=== PATIENT | female | born 2000 | race Caucasian/White ===

== ENCOUNTER → 2023-09-23 | Outpatient (CLI) | payer OTHER, SELFPAY ==
[2023-09-23 12:27] LABS: AST(SGOT) 15 U/L (15-37); Alanine Aminotransfer ALT/SGPT 21 U/L (13-56); Cholesterol 156 mg/dL (200); Triglycerides 105 mg/dL
== END | disposition home or self-care (01) ==
LOC: LAB 11:36
PROVIDERS: PCP Family Medicine
DX: L70.0 Acne vulgaris (principal); Z79.899 Other long term (current) drug therapy
CPT/HCPCS: 36415; 82465; 84450; 84460; 84478

== ENCOUNTER 2025-01-25 14:56 | Emergency (ER) | payer OTHER, SELFPAY ==
[2025-01-25 14:58] VITALS: BP 120/91; PULSE 104; RESP 16; TEMP 36.7; O2SAT 100; BMI 23.0
[2025-01-25 17:12] VITALS: BP 120/91; PULSE 98; RESP 16; TEMP 36.7; O2SAT 100
== END 2025-01-25 17:12 | disposition home or self-care (01) ==
PROVIDERS: Emergency Provider Emergency Medicine; PCP Family Medicine; Visit Provider Emergency Medicine
DX: S54.02XA Injury of ulnar nerve at forearm level, left arm, initial encounter (principal); W08.XXXA Fall from other furniture, initial encounter; S50.02XA Contusion of left elbow, initial encounter; S80.11XA Contusion of right lower leg, initial encounter
CPT/HCPCS: 73080; 73590; 99282